=== PATIENT | female | born 1950 | race Asian ===

== ENCOUNTER 2016-10-15 07:14 | Emergency (ER) | payer MEDICARE ==
[~2016-10-15] VITALS: Ht 149.9 cm; Wt 70.8 kg
[2016-10-15] VITALS (10 sets, daily range): BP systolic 103–153; BP diastolic 54–119; PULSE 102–143; RESP 20–27; O2SAT 96–100
[~2016-10-15 07:14] MED LIST: CITA20TA PO; ERGO400C PO; GLU500 PO; GLUCOTROL2.5 MG/BOT PO; LOVA20TA7 PO; [UNRECOGNIZED DRUG - CODE] PO; warfarin sodium PO
--- NOTE | 2016-10-15 07:14 | ED.REPORT ---
HPI-Altered Mental Status Date of Service Oct 15, 2016 ED Provider: Juanito Avelar MD 66 year old female anticoagulated on warfarin with a history of CVA with right side deficits, diabetes, and atrial fibrillation presents to the ER via EMS with decreased LOC. Last known normal 18:00 yesterday. GCS of 3 on EMS arrival at the patient's home, BP 112/70. Patient found down by son this morning on the couch, with emesis around her mouth and dried blood around her nose. Daughter in law last saw patient sleeping on the couch at 02:00 today. Nursing Notes Stated Complaint: DECREASE LOC Chief Complaint: Neuro Symptoms/ Deficits Nursing Notes Reviewed: Yes Allergies: Coded Allergies: No Known Allergies (Verified , 06/28/09) Scheduled Citalopram-Expunged Drug, Do Not Renew! (Citalopram-Expunged Drug, Do Not Renew! ) 20 Mg Tablet 20 MG PO DAILY Ergocalciferol-Expunged Drug, Do Not Renew! (Vitamin D-Expunged Drug, Do Not Renew!) 400 Unit Capsule 400 UNIT PO DAILY 1000mg daily Lovastatin-Expunged Drug, Do Not Renew! (Mevacor-Expunged Drug, Do Not Renew!) 20 Mg Tablet 20 MG PO QPM Metformin-Expunged Drug, Do Not Renew! (Metformin-Expunged Drug, Do Not Renew!) 500 Mg Tablet 500 MG PO BID TAKE WITH EVENING MEAL Sotalol Hcl-Expunged Drug, Do Not Renew! (Betapace-Expunged Drug, Do Not Renew! ) 160 Mg Tablet 160 MG PO BID glipiZIDE-Expunged Drug, Do Not Renew! (glipiZIDE XL-Expunged Drug, Do Not Renew !) 2.5 Mg Tablet 10 MG PO BID Miscellaneous Medications ([warfarin sodium]) MG PO TAKE DIRECTED General Time Seen by MD: 07:14 Chief Complaint Unresponsive Hx Obtained From: EMS Arrived By: Ambulance Sudden in Onset?: No Onset Occurred: Just prior to arrival (last known normal 18:00 yesterday) Symptom Duration: Since onset Progression since Onset: Unchanged Related History: Reports Atrial fibrillation, Reports CVA/TIA, Reports Diabetes mellitus Risk Factors Irma Coma Score > Age 5 Eye Opening: No response (1) Verbal Response: No response (1) Motor Response: No response (1) Alexander Coma Score: 3 Past Medical History Past Medical History Reports: Diabetes mellitus, GERD, Stroke Reports: Atrial fibrillation Past Surgical History Reports: Pacemaker insertion Smoking History Unknown if Ever Smoker Social History Alcohol Use: Denies alcohol use Drug Use: Denies drug use Other Social History: Good social support Review of Systems Unable to Obtain ROS Patient condition Physical Exam Physical Exam Notes: Initial Vital Signs Vital Signs (First) Date Time Temp Pulse Resp B/P Pulse Ox O2 Delivery O2 Flow Rate FiO2 10/15/16 07:13 35.4 133 26 112/54 100 Mechanical Ventilator 10 Initial VS: Reviewed Skin: Warm, Dry, No cyanosis General/Constitutional: Well developed Alertness: Positive: Unresponsive Head / Eyes: Atraumatic, Normocephalic Respiratory / Chest: No rales, No rhonchi, No wheezing Diminished Breath Sounds: Positive: Decreased L Cardiovascular: Heart rate NL, Regular rhythm, Heart sounds NL, Peripheral circulation NL Mental Status: Positive: Unresponsive GCS 3 ENT: Airway patent, Mucous membranes moist Dried blood in nares. No active bleeding. Abdomen: Soft, Non-tender, No guarding, No rebound Interpretation & Diagnostics Lab Results Interpretation Result Diagram: 10/15/16 0738 10/15/16 0845 Test 10/15/16 07:38 10/15/16 08:07 10/15/16 08:45 White Blood Count 18.7th/mm3 (3.8-10.1) Red Blood Count 4.94mil/mm3 (3.90-5.20) Hemoglobin 15.5g/dL (12.0-15.6) Hematocrit 48.2% (35.0-46.0) Mean Corpuscular Volume 97.6fL (81-100) Mean Corpuscular Hemoglobin 31.4pg (27.0-35.0) Mean Corpuscular Hemoglobin Concent 32.2% (32.0-37.0) Red Cell Distribution Width 13.9% (12.3-15.4) Platelet Count 206bil/L (150-400) Neutrophils (%) (Auto) 80.2% (40-74) Lymphocytes (%) (Auto) 10.8% (14-46) Monocytes (%) (Auto) 7.4% (4-12) Eosinophils (%) (Auto) 1.0% (0-5) Basophils (%) (Auto) 0.2% (0-3) Prothrombin Time 12.6sec (8.1-12.5) Prothromb Time International Ratio 1.17ratio Lactic Acid Level 9.7mmol/L (0.4-2.0) Urine Color Straw (YELLOW) Urine Appearance Hazy (CLEAR,HAZY) Urine pH 5.5 (5.0-8.0) Urine Specific [place] 1.030 (1.003-1.035) Urine Protein 100mg/dL (NEG,TRACE) Urine Glucose (UA) 500mg/dL (NEGATIVE) Urine Ketones Tracemg/dL (NEGATIVE) Urine Occult Blood Large (NEGATIVE) Urine Nitrite Negative (NEGATIVE) Urine Bilirubin Negative (NEGATIVE) Urine Urobilinogen Normalmg/dL (NORMAL) Urine Leukocyte Esterase Trace (NEGATIVE) Urine RBC 3-10/hpf (0-2) Urine WBC 11-50/hpf (0-5) Urine Epithelial Cells Occasional/hpf (NONE-MOD) Urine Crystals Amorphous urates (NONE Urine Bacteria Few/hpf (NONE-FEW) Urine Hyaline Casts None/lpf (NONE) Urine Granular Casts None seen (NONE SEEN) Urine Waxy Casts None seen (NONE SEEN) Urine Red Blood Cell Casts None seen (NONE SEEN) Urine White Blood Cell Casts None seen (NONE SEEN) Urine Mucus Present (None Seen) Urine Trichomonas None seen (NONE SEEN) Urine Yeast None (NONE SEEN) Urinalysis Comment None Urine Culture Reflexed Indicated Sodium Level 139mEq/L (134-144) Potassium Level 4.9mEq/L (3.5-5.2) Chloride Level 101mEq/L (97-108) Carbon Dioxide Level 16mmol/L (18-29) Blood Urea Nitrogen 24mg/dL (8-27) Creatinine 1.14mg/dL (0.57-1.00) Estimat Glomerular Filtration Rate 68mL/min (>59) Glucose Level 246mg/dL (60-99) Calcium Level 8.3mg/dL (8.5-10.1) Total Bilirubin 0.7mg/dL (0.0-1.2) Aspartate Amino Transf (AST/SGOT) 40U/L (0-50) Alanine Aminotransferase (ALT/SGPT) 19U/L (0-32) Alkaline Phosphatase 36U/L (25-165) Total Protein 7.6g/dL (6.4-8.4) Albumin 3.6g/dL (3.4-5.0) ECG Interpretation ECG Interpretation: Atrial fibrillation, rate 140 Time: 07:42 Interpreted by: ED physician ABG Interpretation ABG Interpretation: pH/ 7.292 pCO2/ 36 pO2/ 115 cHCO3/16.7 cBase/ -8.6 CT Head Interpretation IMPRESSION: 1. Large subacute infarct in the right MCA distribution. There is effacement of cerebral sulci in the right hemisphere and mass effect to the right lateral ventricle with 2.4 mm leftward midline shift secondary to cerebral edema. 2. Old infarcts in the left basal ganglia and periventricular matter. 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 Dictated by: Shelly Sousa M.D. on 10/15/2016 at 8:58 Approved by: Shelly Sousa M.D. on 10/15/2016 at 9:04 Study: Head CT no contrast Interpretation / Wet Read by: Interpret - Radiologist Re-Eval/Medical Decision Med Decision/Clinical Course 66-year-old female history of ischemic CVA on warfarin presenting with altered mental status. Last known normal 6 PM last night. Found this morning proximal probably [address] head shows a large right-sided ischemic infarct subacute MCA distribution. Discussed with [facility] neurology multiple times Dr. Cruz and Dr. Marte without prognosis poor, out of tPA and intra-arterial TPA window recommended supportive care. Dr. Marte recommended mannitol in addition to the Keppra and Ativan with given for seizures. Family unable to decide on palliative care versus supportive care at this time. Patient be transferred via ALS to [facility]. Source of Hx: Old records, EMS, Family Re-Evaluation/Progress #1: Time of Eval: 07:37 Re-Evaluation/Progress Note: Discussed CT results, prognosis, and plan of care with patient's son. Advised on treatment options. He reports no advance directive. Re-Evaluation/Progress #2: Time of Eval: 07:43 Re-Evaluation/Progress Note: Lanceugher is now present, at bedside. Discussed CT results and prognosis. Re-Evaluation/Progress #3: Time of Eval: 08:59 Re-Evaluation/Progress Note: Updated family on the plan of care and need for transfer. They are amenable to the plan. All other questions addressed. Re-Evaluation/Progress #4: Time of Eval: 10:07 Re-Evaluation/Progress Note: Final goodbyes with the family. All questions addressed. Consultation #1: Consulted With: Neurology ([facility]) Call Returned at: 07:35 Note: Supportive care. Not TPA candidate. Consultation #2: Consulted With: Neurology ([facility]) Call Returned at: 08:23 Note: Discussed patient case with [facility] Neurology. Will call back. Consultation #3: Referral / Consult Name: Canelo Cruz MD Consulted With: Neurology ([facility]) Call Returned at: 08:38 Note: Discussed patient case with Dr. Cruz, Neurology. Difficult prognosis, difficult to tell. Consultation #4: Consulted With: Neurology ([facility]) Call Returned at: 09:45 Note: Discussed patient case with Dr. Marte, Neurology at [facility]. Agrees with Gale and srinivas. Recommends Mannitol, 0.75g/kilo. Accepts transfer. Counseled Regarding: Diagnosis, Lab results, Need for transfer Patient Discharge & Departure Impression: Primary Impression: CVA (cerebral vascular accident) Disposition: Transfer, Acute Care Facility Receiving Hospital: [facility] Transfer Accepted at: 09:45 Transfer Reason: Higher level of care Spoke with: Specialty physician (Dr. Marte, Neurology) Patient Status: Stable Patient Informed: Unable Discharge Condition All VS Reviewed: Yes Condition: Critical Referrals: Sania Ly MD (PCP) Crit Care Except Billable Proc Time Spent: 135-164 minutes Services Performed: Patient management by me, Time spent at bedside, Reviewing test results, Reviewing imaging, Discussing patient care, Documentation in record, Time with fam/surrogate Scribe Attestation Portions of this note were transcribed by Chicho Clarke. I, Dr. Avelar, personally performed the history, physical exam and medical decision-making; I reviewed and confirmed the accuracy of the information in the transcribed note. Signed by: Vanessa Thapa, 10/15/2016 - [time] copies to: Sania Ly MD, Ben M MD Oct 15, 2016 07:14 CHICHO CLARKE Oct 15, 2016 07:44
[2016-10-15] MEDS ORDERED: 0.9% Sodium Chloride 1,000 ML IV ONE (07:17)
[2016-10-15 07:50] LABS: BASOPHILS % (AUTO) 0.2 % (0-3); MONOCYTES % (AUTO) 7.4 % (4-12); Mean Corpuscular Hemoglobin 31.4 pg (27.0-35.0); Mean Corpuscular Volume 97.6 fL (81-100); NEUTROPHILS % (AUTO) 80.2 % (40-74); Platelet Count 206 bil/L (150-400)
[2016-10-15 08:01] LABS: INR 1.17 ratio
[2016-10-15 08:29] LABS: APPEARANCE,URINE HAZY (CLEAR,HAZY); COLOR,URINE STRAW (YELLOW); OCCULT BLOOD,URINE LARGE (NEGATIVE); PH,URINE 5.5 (5.0-8.0); UROBILINOGEN,URINE NORMAL (NORMAL)
--- NOTE | 2016-10-15 08:42 | ABG ---
DateTimeAnalyzed 08:36:00 -_ pH ____7.292 - 7.350 7.450 pCO2 ___35.7__ -mmHg 35.0 45.0 pO2 115 -mmHg 69.0 116 HCO3- ___16.7__ -mmol/L 22.0 26.0 ABE ___-8.6__ -mmol/L -2.0 2.0 tHb ___15.2__ -g/dL O2Hb ___96.1__ -% COHb ____0.6__ -% MetHb ____0.9__ -% sO2 ___97.6__ -% FIO2 ___60.0__ -% PRVC 350 - PEEP ____5.0__ -cmH2O Set_RR ___20.0__ -b/min Drawn By [facility] - Date/Time Notified____ 08:42:00 -_ Spontaneous_RR ___20.0__ -b/min Oxygen Device 1 VENTILATOR - Notified By [facility] - Notified Whom Geoff-Haider, Juanito MD - B 749 -mmHg tO2 ___20.7__ -Vol% Titi test _Positive -
--- NOTE | 2016-10-15 09:06 | DRSVH ---
PROCEDURE: CT BRAIN WITHOUT CONTRAST ([id number]) INDICATIONS: 66 year-old woman with decreased level of consciousness. TECHNIQUE: Noncontrast 4.5 mm thick angled axial sections acquired from the foramen magnum to the vertex, with c oronal reformats. COMPARISON: [facility], CT, BRAIN W/O CONTRAST, 11/13/2008, 8:22. FINDINGS: Image quality: Excellent. CSF spaces: Basal cisterns are patent. No extra-axial fluid collections. The ventricles are symmet les in size and shape. Brain: There is a large area of hypodensity in the right hemisphere consistent with large subacute i nfarct. There is diffuse cervix edema in right hemisphere with effacement of cerebral sulci and mild mass effect of the right lateral ventricle. There is 2.4 mm leftward midline shift. There are old inf arcts in left basal ganglia and ozuna radiata. No intracranial bleeds or masses. There is cerebral volume loss for age, with resultant ventricular and sulcal prominence. There are severe periventricu lar and deep white matter chronic small vessel ischemic changes. There is intracranial internal arias tid artery atherosclerosis. Skull and face: Calvarium and visualized facial bones appear intact, without suspicious lesions. Sinuses: Visualized sinuses and mastoids are clear. IMPRESSION: 1. Large subacute infarct in the right MCA distribution. There is effacement of cerebral sulci in the right hemisphere and mass effect to the right lateral ventricle with 2.4 mm leftward midline shift s econdary to cerebral edema. 2. Old infarcts in the left basal ganglia and periventricular matter. No significant discrepancy with the material handler 2nd shift radiology preliminary report. Dictated by: Shelly Sousa M.D. on 10/15/2016 at 8:58 Approved by: Shelly Sousa M.D. on 10/15/2016 at 9:04
--- NOTE | 2016-10-15 09:22 | DRSVH ---
PROCEDURE: X-RAY CHEST ONE VIEW, PORTABLE ([id number]) INDICATIONS: DECREASE LEVEL OF CONSCIOUSNESS; INTUBATION TECHNIQUE: One view of the chest was acquired. COMPARISON: [facility], , CHEST 1VW (PORTABLE), 08/22/2010, 18:40. FINDINGS: Surgical changes and devices: Stable positioning of dual chamber right cardiac pacemaker. ETT tip pr ojected 2.4 cm above the dilcia. Lungs and pleura: No pleural effusions or pneumothorax. Lungs are clear. Mediastinum: Mediastinal contours appear normal. Heart size is normal. Bones and chest wall: No suspicious bony lesions. Overlying soft tissues appear unremarkable. IMPRESSION: Expiratory chest demonstrating no definite acute cardiopulmonary process. Dictated by: Henry Mart RRA Interpreted: Shelly Sousa MD on 10/15/2016 at 9:21 Transcribed by: TARIQ on 10/15/2016 at 9:22 Approved by: Shelly Sousa M.D. on 10/15/2016 at 19:04
[2016-10-15] MEDS ORDERED: cefTRIAXone Inj 1,000 MG in Dextrose 5% Minibag Plus 50 ML IV SCH (09:25)
[2016-10-15] MEDS ORDERED: levETIRAcetam Inj 1,000 MG in IV Premix 1 EACH IV ONE (09:25)
[2016-10-15] MEDS ORDERED: Mannitol 25% 12.5 Gm/50 mL Inj IVPUSH ONE (09:45)
[2016-10-15] MEDS ORDERED: MANNITOL IV ONE (10:05)
== END 2016-10-15 10:30 | disposition short-term general hospital (02) ==
LOC: SED 07:14
DX: I63.9 Cerebral infarction, unspecified (principal); R29.703 NIHSS score 3; E11.59 Type 2 diabetes mellitus with other circulatory complications; I48.91 Unspecified atrial fibrillation; K21.9 Gastro-esophageal reflux disease without esophagitis; Z95.5 Presence of coronary angioplasty implant and graft
CPT/HCPCS: 36415; 36620; 70450; 71010; 80053; 81000; 82375; 82803; 82948; 83605; 85025; 85610; 87086; 87088; 93005; 94002; 94664; 94799; 96361; 96365; 96375; 99291; 99292; J0696; J1953; J2060; J2150; J7030